=== PATIENT | female | born 1970 | race Caucasian/White ===

== ENCOUNTER 2024-01-09 16:31 | Inpatient (IN) | payer OTHER ==
[~2024-01-09] VITALS: Ht 157.5 cm; Wt 75.5 kg
[2024-01-09 16:35] VITALS: BP_SYST 129; PULSE 70; RESP 16; TEMP 98.9; O2SAT 97
[2024-01-09] MEDS: IBUPROFEN 800 MG TABLET PO ONE (17:39)
[2024-01-09] MEDS: HYDROcodone/ACETAMIN 5-325 MG TAB (NORCO/ VICODIN) PO ONE (17:40)
[2024-01-09] MEDS: MORPHINE 4 MG INJ. 4 MG/ML VIAL ONE (18:58)
[2024-01-09] MEDS: MORPHINE 4 MG INJ. 4 MG/ML VIAL IM ONE (19:01)
[2024-01-09 19:58] LABS: BASOPHILS % (AUTO) 0.2 % (0.0-2.0); EOSINOPHILS # (AUTO) 0.1 K/uL (0.0-0.4); HEMATOCRIT 39.7 % (36-48); HEMOGLOBIN 13.5 g/dL (12.0-16.0); LYMPHOCYTES # (AUTO) 2.2 K/uL (1.0-5.5); LYMPHOCYTES % (AUTO) 18.9 % (20.5-51.5); MEAN CORPUSCULAR HEMOGLOBIN 30 pg (27-31); MEAN CORPUSCULAR HGB CONC 34 % (32-36); MEAN CORPUSCULAR VOLUME 88 fL (79.0-98.0); MONOCYTES # (AUTO) 0.4 K/uL (0.0-1.0); MONOCYTES % (AUTO) 3.8 % (1.7-9.3); NEUTROPHILS % (AUTO) 76.1 % (40.0-70.0); PLATELET COUNT (AUTO) 243 K/uL (130-430); RED BLOOD CELL COUNT(AUTO) 4.49 MIL/uL (4.2-6.2); RED CELL DISTRIBUTION WIDTH 13.4 % (9.0-15.0); WHITE BLOOD COUNT (AUTO) 11.8 K/uL (4.8-10.8)
[2024-01-09] MEDS ORDERED: MORPHINE 2 MG/ML INJ. SYRINGE IVP PRN (20:00)
[2024-01-09] MEDS ORDERED: ZOLPIDEM TARTRATE 5 MG TABLET PO PRN (20:00)
[2024-01-09 20:16] LABS: PROTHROMBIN TIME 10.4 SECS (9.5-12.5)
[2024-01-09] MEDS: MORPHINE 4 MG INJ. 4 MG/ML VIAL IVP PRN (20:19)
[2024-01-09] MEDS: ONDANSETRON HCL 4 MG/2 ML VIAL IVP PRN (20:20)
[2024-01-09 20:29] LABS: ANION GAP 8 (5-15); CARBON DIOXIDE 28 mmol/L (23-29); CHLORIDE 104 mmol/L (98-107); CREATINE KINASE, TOTAL 114 U/L (26-192); CREATININE 0.71 mg/dL (0.55-1.30); GFR AFRICAN AMERICAN 112 mL/min (>90); GFR NON AFRICAN-AMERICAN 92 mL/min (>90); GLUCOSE 110 mg/dL (74-106); POTASSIUM 3.4 mmol/L (3.5-5.1); SODIUM SERUM 140 mmol/L (136-145); UREA NITROGEN, BLOOD 11 mg/dL (8-21)
[2024-01-09] MEDS ORDERED: POTASSIUM CHLORIDE 20 MEQ TABLET.ER ONE (23:32)
[2024-01-09] MEDS: POTASSIUM CHLORIDE 20 MEQ TABLET.ER PO ONE (23:42)
[2024-01-09] MEDS: NITROGLYCERIN 0.4 MG TAB.SUBL SL ONE (23:45)
[2024-01-09] MEDS: NACL 0.9% 1,000 ML IV SCH (23:50)
[2024-01-10 01:34] LABS: BILIRUBIN,URINE NEGATIVE (NEGATIVE); BLOOD, URINE NEGATIVE (NEGATIVE); CLARITY/URINE SL CLOUDY (CLEAR); COLOR,URINE YELLOW (YELLOW); GLUCOSE,URINE NEGATIVE (NEGATIVE); KETONES,URINE NEGATIVE (NEGATIVE); LEUKOCYTE ESTERASE ,URINE 2+ (NEGATIVE); NITRITE, URINE NEGATIVE (NEGATIVE); PROTEIN URINE NEGATIVE (NEGATIVE); UROBILINOGEN,URINE 0.2 (0.2-1.0)
[2024-01-10 01:49] VITALS: BP_SYST 93; PULSE 63; RESP 18; TEMP 96.9; O2SAT 97
[2024-01-10 02:26] LABS: BACTERIA,URINE FEW /HPF (None Seen); RBC,URINE 0-3 /HPF (0-3); WBC,URINE 20-50 /HPF (0-3)
[2024-01-10 07:55] LABS: BASOPHILS % (AUTO) 0.3 % (0.0-2.0); HEMATOCRIT 37.3 % (36-48); HEMOGLOBIN 12.5 g/dL (12.0-16.0); LYMPHOCYTES # (AUTO) 2.2 K/uL (1.0-5.5); LYMPHOCYTES % (AUTO) 20.6 % (20.5-51.5); MEAN CORPUSCULAR HEMOGLOBIN 30 pg (27-31); MEAN CORPUSCULAR HGB CONC 34 % (32-36); MEAN CORPUSCULAR VOLUME 89 fL (79.0-98.0); MONOCYTES # (AUTO) 0.4 K/uL (0.0-1.0); MONOCYTES % (AUTO) 3.4 % (1.7-9.3); NEUTROPHILS # (AUTO) 7.9 K/uL (1.8-7.7); NEUTROPHILS % (AUTO) 75.7 % (40.0-70.0); PLATELET COUNT (AUTO) 241 K/uL (130-430); RED BLOOD CELL COUNT(AUTO) 4.19 MIL/uL (4.2-6.2); RED CELL DISTRIBUTION WIDTH 13.7 % (9.0-15.0); WHITE BLOOD COUNT (AUTO) 10.5 K/uL (4.8-10.8)
[2024-01-10 08:00] VITALS: BP_SYST 110; PULSE 68; RESP 18; TEMP 97.9; O2SAT 98
[2024-01-10 08:05] LABS: ALBUMIN 3.2 g/dL (3.4-4.8); CALCIUM 8.7 mg/dL (8.4-11.0); CREATININE 0.74 mg/dL (0.55-1.30); POTASSIUM 4.2 mmol/L (3.5-5.1); TOTAL BILIRUBIN 0.4 mg/dL (0.0-1.0)
[2024-01-10 09:25] VITALS: O2SAT 98
[2024-01-10] MEDS: cefTRIAXone 1 GM in D5W 50 ML IV SCH (10:52)
[2024-01-10] MEDS ORDERED: HYDROcodone/ACETAMIN 10-325 MG TAB PO PRN (11:15)
[2024-01-10 11:18] VITALS: BP_SYST 132; PULSE 62; RESP 16; TEMP 97.6; O2SAT 98
[2024-01-10] MEDS: HYDROcodone/ACETAMIN 5-325 MG TAB (NORCO/ VICODIN) PO PRN (12:08)
[2024-01-10] MEDS ORDERED: CEPH250C PO (14:39)
[2024-01-10] MEDS ORDERED: HYDR-3917 PO (14:39)
[2024-01-10 15:08] VITALS: BP_SYST 109; PULSE 62; RESP 16; TEMP 96.5; O2SAT 98
[2024-01-10] MEDS: ENOXAPARIN SODIUM 40 MG/0.4 ML SYRINGE SUBCUT ONE (15:23)
[2024-01-10 17:58] VITALS: BP_SYST 109; PULSE 62; RESP 16; TEMP 96.5; O2SAT 98
[2024-01-11] MEDS ORDERED: ENOXAPARIN SODIUM 40 MG/0.4 ML SYRINGE SUBCUT SCH (09:00)
== END 2024-01-10 18:10 | disposition home or self-care (01) | DRG 563 ==
LOC: SED 16:31 → SMU 20:59
PROVIDERS: ADMIT Internal Medicine; ATTEND Internal Medicine
PROC: 2W3FX1Z Immobilization of Left Hand using Splint (ICD-10-PCS; principal; 2024-01-09)
DX: S52.121A Displaced fracture of head of right radius, initial encounter for closed fracture (principal); S82.044A Nondisplaced comminuted fracture of right patella, initial encounter for closed fracture; S52.615A Nondisplaced fracture of left ulna styloid process, initial encounter for closed fracture; S52.502A Unspecified fracture of the lower end of left radius, initial encounter for closed fracture; N39.0 Urinary tract infection, site not specified; S01.81XA Laceration without foreign body of other part of head, initial encounter; E87.6 Hypokalemia; W18.39XA Other fall on same level, initial encounter; Y93.89 Activity, other specified; Y92.89 Other specified places as the place of occurrence of the external cause; Y99.8 Other external cause status; Z90.49 Acquired absence of other specified parts of digestive tract; Z79.899 Other long term (current) drug therapy
CPT/HCPCS: 36415; 70450-TC; 71045; 73564; 80048; 80053; 81000; 81001; 81015; 82550; 83880; 84484; 85025; 85610; 85730; 87086; 93005; 96372; 96374; 96375; 97116-GP; 97530-GP; 99285; J0696; J1650; J2270; J2405; J7060